=== PATIENT | male | born 1955 | race Caucasian/White ===

== ENCOUNTER 2017-05-01 06:37 | Day surgery (SDC) | payer BC, OTHER ==
[2017-05-01] MEDS ORDERED: LR 1,000 ML IV ONE (07:04)
[2017-05-01] MEDS ORDERED: LIDOCAINE 1% 2 ML INJ ID PRN (07:04)
--- NOTE | 2017-05-01 07:36 | PDANEPAE ---
ANE Past Medical History - Cardiovascular History Hx Hypertension: No Hx Arrhythmias: No Hx Chest Pain: No Hx Coronary Artery / Peripheral Vascular Disease: No Hx CHF / Valvular Disease: No Hx Palpitations: No Cardiovascular History Comment: takes lisinopril/ hctz to protect kidneys - Pulmonary History Hx COPD: No Hx Asthma/Reactive Airway Disease: No Hx Recent Upper Respiratory Infection: No Hx Oxygen in Use at Home: No Hx Sleep Apnea: Yes Sleep Apnea Screening Result - Last Documented: Positive Pulmonary History Comment: ragini positive- uses cpap- instructed pt to bring tomorrow. seasonal asthma - Neurologic History Hx Cerebrovascular Accident: No Hx Seizures: No Hx Dementia: No - Endocrine History Hx Diabetes: Yes Hypothyroid: Yes Hyperthyroid: No Obesity: moderate Endocrine History Comment: type 2. hypothyroidism - Renal History Hx Renal Disorders: No - Liver History Hx Hepatic Disorders: No - Neurological & Psychiatric Hx Hx Neurological and Psychiatric Disorders: Yes Neurological / Psychiatric History Comment: anxiety. 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 appy ANE Review of Systems Review of Systems: - Exercise capacity METS (RN): 4 METS ANE Patient History - Allergies Allergies/Adverse Reactions: metformin Allergy (Verified 04/30/17 16:31) severe diarrhea that lowers bp and he passes out Sulfa (Sulfonamide Antibiotics) Allergy (Verified 04/30/17 16:31) lose parts of skin all over body - Home Medications Home Medications: DULoxetine 04/30/17 [Last Taken 04/30/17 13:30] Humalog 40 units SQ TID 04/30/17 [Last Taken 04/29/17 08:30] Januvia 50 mg 04/30/17 [Last Taken 04/30/17 22:30] LEVOTHYROXINE SODIUM 04/30/17 [Last Taken 04/29/17 22:30] LISINOPRIL/HYDROCHLOROTHIAZIDE 04/30/17 [Last Taken 04/29/17 22:30] Montelukast Sodium 04/30/17 [Last Taken 04/30/17 22:30] Tresiba Flextouch U-100 120 units SQ DAILY 04/30/17 [Last Taken 04/30/17 22:30] - NPO status NPO Since - Liquids (Date): 05/01/17 NPO Since - Liquids (Time): 03:30 NPO Since - Solids (Date): 04/29/17 NPO Since - Solids (Time): 09:30 - Smoking Hx Smoking Status: Never smoked - Family Anes Hx Family Hx Anesthesia Complications: father- "he is difficult to put under" ANE Labs/Vital Signs - Labs Result Diagrams: 05/01/17 07:20 - Vital Signs Blood Pressure: 118/82 Heart Rate: 69 Respiratory Rate: 20 O2 Sat (%): 90 Height: 193.04 cm Weight: 136.078 kg ANE Physical Exam - Airway Neck exam: decreased ROM Mallampati Score: Class 2 Mouth exam: normal dental/mouth exam - Pulmonary Pulmonary: no respiratory distress - Cardiovascular Cardiovascular: regular rate and rhythym - ASA Status ASA Status: III ANE Anesthesia Plan Anesthesia Plan: GA with mask, MAC
[2017-05-01] MEDS ORDERED: PROPOFOL 200 MG/20 ML VIAL ONE ×4 (07:53→09:11)
[2017-05-01] MEDS ORDERED: LIDOCAINE 2% 5 ML SDV ONE (07:53)
--- NOTE | 2017-05-01 09:20 | PDGENHP ---
History & Physical Chief Complaint: Screening colonscopy History of Present Illness: Screening colonscopy, not increased risk Pertinent Past, Social, Family History: Negative Relevant Physical Exam: Normal Heart, Normal S1S2. Lungs Clear Cardiorespiratory Assessment: Normal, proceed with colonsopy
--- NOTE | 2017-05-01 09:28 | GIREPORT ---
[facility] - Endoscopy Department Patient Name: Yuniel Sanders Procedure Date: 05/01/2017 8:31 AM Patient Type: Outpatient Attending / ER Physician: Aditya Castro MD Procedure: Colonoscopy Indications: Screening for colorectal malignant neoplasm Providers: Aditya Castro MD Medicines: See the Anesthesia note for documentation of the administered medicatio ns Complications: No immediate complications. Description of Procedure: After obtaining informed consent, the scope was passed under direct vis ion. Throughout the procedure, the patient's blood pressure, pulse, and oxyg en saturations were monitored continuously. The Colonoscope with irrigatio n channel was introduced through the anus and advanced to the cecum, identified by appendiceal orifice and ileocecal valve. The patient tole rated the procedure well. The quality of the bowel preparation was good. The ileocecal valve, appendiceal orifice, and rectum were photographed. The colonoscopy was extremely difficult due to significant looping, a tortu ous colon and the patient's body habitus. Successful completion of the proc edure was aided by changing the patient to a supine position, withdrawing and reinserting the scope and applying abdominal pressure. Findings: Many small and large-mouthed diverticula were found in the sigmoid colo n, descending colon, transverse colon and ascending colon. The exam was otherwise without abnormality on direct and retroflexion v iews. The entire examined colon appeared normal. Estimated Blood Loss: Estimated blood loss: none. Post Op Diagnosis: - Diverticulosis in the sigmoid colon, in the descending colon, in the transverse colon and in the ascending colon. - The examination was otherwise normal on direct and retroflexion views . - The entire examined colon is normal. - No specimens collected. Recommendation: - Patient has a contact number available for emergencies. The signs and symptoms of potential delayed complications were discussed with the pat ient. Return to normal activities tomorrow. Written discharge instructions we re provided to the patient. - High fiber diet. - Continue present medications. - Repeat colonoscopy in 10 years for screening purposes. - Thank you for allowing me to participate in the care of your patient. Attending Participation: I personally performed the entire procedure. Aditya Castro MD Aditya Castro MD 05/01/2017 9:27:33 AM This report has been signed electronicallyStparag Castro MD Number of Addenda: 0 Note Initiated On: 05/01/2017 8:31 AM Total Procedure Duration Time 0 hours 38 minutes 24 seconds [email or web address]
[2017-05-01] MEDS ORDERED: LABETALOL HCL 5 MG/ML 20 ML MDV IVP PRN (09:31)
[2017-05-01] MEDS ORDERED: NALOXONE HCL 0.4 MG/ML INJ IVP PRN (09:31)
[2017-05-01] MEDS ORDERED: fentaNYL 100 MCG/2 ML INJ IVP PRN (09:31)
[2017-05-01] MEDS ORDERED: ONDANSETRON 4 MG/2 ML VIAL IVP PRN (09:31)
--- NOTE | 2017-05-01 09:32 | POSTANESTH ---
Post Anesthetic Evaluation Cardiovascular Status: Normal, Stable Respiratory Status: Similar to Pre-op Cond. Level of Consciousness/Mental Status: Mildly Sleepy, Arousable Pain Control: Adequate, Prn Tx Ordered Nausea/Vomiting Control: Adequate, Prn Tx Ordered Complications Possibly Related to Anesthesia: None Noted
[2017-05-01 09:48] VITALS: TEMP 97.3
[2017-05-01 09:53] VITALS: PULSE 66
[2017-05-01 10:06] VITALS: BP 109/80; RESP 12; O2SAT 93
== END 2017-05-01 10:42 | disposition home or self-care (01) ==
LOC: FSGY 06:37
PROVIDERS: ATTEND Internal Medicine Gastroenterology
PROC: 0DJD8ZZ Inspection of Lower Intestinal Tract, Via Natural or Artificial Opening Endoscopic (ICD-10-PCS; principal; 2017-05-01 08:15)
DX: Z12.11 Encounter for screening for malignant neoplasm of colon (principal); K57.30 Diverticulosis of large intestine without perforation or abscess without bleeding; E03.9 Hypothyroidism, unspecified; G47.33 Obstructive sleep apnea (adult) (pediatric)
CPT/HCPCS: J2704